=== PATIENT | female | born 1985 | race Caucasian/White ===

== ENCOUNTER 2023-07-23 15:41 | Emergency (ER) | payer OTHER, SELFPAY ==
[2023-07-23 15:47] VITALS: BP 132/82; PULSE 73; RESP 14; TEMP 36.8; O2SAT 100; BMI 23.3
--- NOTE | 2023-07-23 15:56 | US_ITS ---
The [address] [address] Patient Name: ISABEL SOSA MRN: [id number] date: 1985 Sex: F Assigned Patient Location: ER Current Patient Location: ED.MAIN Accession/Order Number: [id number] Exam Date: 07/23/2023 16:05 Report Date: 07/23/2023 16:52 At the request of: PORTIA ROUSE Procedure: US venous doppler UE RT US venous doppler UE RT, 07/23/2023 4:05 PM EDT, [place]001 INDICATION: DVT painful right forearm lump. COMPARISON: None Technique: Duplex Doppler sonographic images of the right upper extremity venous system were obtained. FINDINGS: Normal flow, phasicity, augmentation and compression was observed in the subclavian, axillary, brachial, basilic, cephalic, and antecubital veins. No definite mass or abnormal fluid collection is seen region of clinical concern in the forearm. US/US venous doppler UE RT IMPRESSION: No evidence of DVT in the images obtained. Electronically authenticated by: YASMANI STACK Date: 07/23/2023 16:52
--- NOTE | 2023-07-23 16:11 | ED.GENADUL1 ---
HPI - General Adult General Chief complaint: Extremity Injury, Upper Stated complaint: Upper Extremity Pain Time Seen by Provider: 07/23/23 15:56 Source: patient Mode of arrival: walk-in History of Present Illness HPI narrative: patient is a 37-year-old female who presents to the emergency department for the evaluation of pain and swelling on the ulnar aspect of the right forearm. She states for the past two days she has noticed pain on the ulnar aspect of the forearm, in the last day she has noticed swelling. She is concerned she may have a blood clot. She had an extensive surgery on her radius and ulna ten years ago a [facility]. She denies any new mechanism of injury or trauma. Pain is not worse with range of motion at the right wrist, pain is worse with supination and pronation. No paresthesia noted. She is not concerned for . Related Data Previous Rx's Medication Instructions Recorded naproxen sodium 550 mg tablet 550 mg PO BID PRN pain #10 tabs 07/23/23 Allergies Allergy/AdvReac Type Severity Reaction Status Date / Time No Known Drug Allergies Allergy Verified 07/23/23 15:51 Review of Systems ROS Constitutional Denies: fever or chills Ears, nose, mouth, and throat Denies: throat pain Respiratory Denies: shortness of breath Gastrointestinal Denies: nausea or vomiting Musculoskeletal Reports: extremity pain and extremity swelling; Denies: back pain or neck pain Integumentary/Breast Denies: rash Neurological Denies: headache Hematologic/Lymphatic Denies: easy bruising Allergic/Immunologic Denies: hives Exam Narrative Exam Narrative: Gen.: Awake, alert, in no distress Head: Normocephalic, atraumatic ENT: Moist mucous membranes Respiratory: No respiratory distress Extremities: Moves extremities equally, well-healed surgical incision of the right forearm with soft tissue swelling noted at the proximal aspect of the incision. No erythema or induration of the skin. No open wounds, red streaking or circumferential erythema noted. No specific palpable fluctuance or abscess noted. 2+ right radial pulse. Normal flexion and extension at the right wrist and right elbow. Psych: Normal mood and affect Neuro: No focal neuro deficit Skin: Warm, dry, intact Constitutional Vital Signs, click to edit/add: Last Vital Signs Temp 98.3 F 07/23/23 15:47 Pulse 73 07/23/23 15:47 Resp 14 07/23/23 15:47 BP 132/82 07/23/23 15:47 Pulse Ox 100 07/23/23 15:47 O2 Del Method Room Air 07/23/23 16:22 Course Vital Signs Vital signs: Vital Signs Temperature 98.3 F 07/23/23 15:47 Pulse Rate 73 07/23/23 15:47 Respiratory Rate 14 07/23/23 15:47 Blood Pressure 132/82 07/23/23 15:47 Pulse Oximetry 100 07/23/23 15:47 Oxygen Delivery Method Room Air 07/23/23 15:47 Temperature 98.3 F 07/23/23 15:47 Pulse Rate 73 07/23/23 15:47 Respiratory Rate 14 07/23/23 15:47 Blood Pressure 132/82 07/23/23 15:47 Pulse Oximetry 100 07/23/23 15:47 Oxygen Delivery Method Room Air 07/23/23 16:22 Medical Decision Making MDM Narrative Medical decision making narrative: x-rays of the right forearm and ultrasound of the right forearm with no evidence of acute process, abscess or deep vein thrombosis. Patient will be treated with NSAIDs, she is strongly encouraged to follow-up with orthopedics [facility] where she had her initial surgery. She is placed in a metal forearm splint with Miguel wrap, she is neurovascularly intact at discharge. Rest, ice, elevate. return to the Emergency Room if symptoms change or worsen Medical Records Medical records reviewed: Yes I reviewed the patient's medical records Imaging Data Venous US: Attestation: I have reviewed the pertinent imaging results. Radiologist's impression: Procedure: US venous doppler UE RT US venous doppler UE RT, 07/23/2023 4:05 PM EDT, [place]001 INDICATION: DVT painful right forearm lump. COMPARISON: None Technique: Duplex Doppler sonographic images of the right upper extremity venous system were obtained. FINDINGS: Normal flow, phasicity, augmentation and compression was observed in the subclavian, axillary, brachial, basilic, cephalic, and antecubital veins. No definite mass or abnormal fluid collection is seen region of clinical concern in the forearm. IMPRESSION: No evidence of DVT in the images obtained. Electronically authenticated by: YASMANI STACK Date: 07/23/2023 16:52 XR forearm: Attestation: I have reviewed the pertinent imaging results. Radiologist's impression: Procedure: XR forearm RT 2V EXAM: XR forearm RT 2V HISTORY: right arm pain COMPARISON: None. TECHNIQUE: 2 views of the right forearm FINDINGS: Status post ORIF of the radial and ulnar shaft. No hardware complication. The alignment is normal. No acute fracture or dislocation. The soft tissue is unremarkable. IMPRESSION: No acute process. Electronically authenticated by: SHUBHAM MARTINEZ Date: 07/23/2023 16:59 Discharge Plan Discharge Chief Complaint: Extremity Injury, Upper Clinical Impression: Pain in right forearm Patient Disposition: Home, Self-Care Time of Disposition Decision: 17:14 Condition: Good Prescriptions / Home Meds: New naproxen sodium 550 mg tablet 550 mg PO BID PRN (Reason: pain) Qty: 10 0RF Instructions: Arm Pain (ED) Additional Instructions: Call [facility] for orthopedic follow up Stand Alone Forms: Portal Instructions Referrals: Physician,Non-Staff, MD [Primary Care Provider] - 1 week
--- NOTE | 2023-07-23 16:34 | XR_ITS ---
The [address] [address] Patient Name: ISABEL SOSA MRN: [id number] date: 1985 Sex: F Assigned Patient Location: ER Current Patient Location: ER Accession/Order Number: [id number] Exam Date: 07/23/2023 16:28 Report Date: 07/23/2023 16:59 At the request of: PORTIA ROUSE Procedure: XR forearm RT 2V EXAM: XR forearm RT 2V HISTORY: right arm pain COMPARISON: None. TECHNIQUE: 2 views of the right forearm FINDINGS: Status post ORIF of the radial and ulnar shaft. No hardware complication. The alignment is normal. No acute fracture or dislocation. The soft tissue is unremarkable. XR/XR forearm RT 2V IMPRESSION: No acute process. Electronically authenticated by: SHUBHAM MARTINEZ Date: 07/23/2023 16:59
[2023-07-23] MEDS: KETOROLAC TROMETHAMINE 10 MG TABLET PO (16:46)
== END 2023-07-23 17:27 | disposition home or self-care (01) ==
PROVIDERS: Emergency Provider Emergency Medicine
DX: M79.631 Pain in right forearm (principal); M79.89 Other specified soft tissue disorders
CPT/HCPCS: 73090; 93971; 99284

== ENCOUNTER 2024-12-02 19:09 | Emergency (ER) | payer OTHER, SELFPAY ==
[2024-12-02] VITALS (13 sets, daily range): BP systolic 146–160; BP diastolic 96–115; PULSE 66–96; TEMP 36.4; O2SAT 96–100; BMI 23.2
--- NOTE | 2024-12-02 19:34 | ECG_ITS ---
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
--- NOTE | 2024-12-02 19:35 | XR_ITS ---
The [address] [address] Patient Name: ISABEL SOSA MRN: [id number] date: 1985 Sex: F Assigned Patient Location: ER Current Patient Location: ER Accession/Order Number: [id number] Exam Date: 12/02/2024 19:45 Report Date: 12/02/2024 20:29 At the request of: PAN HERNANDEZ Procedure: XR chest 1V EXAM: XR chest 1V HISTORY: pain COMPARISON: 09/21/2021 TECHNIQUE: AP upright portable. FINDINGS: Cardiomediastinal silhouette and pulmonary vascularity are within normal limits. The lungs and the costophrenic angles are clear. XR/XR chest 1V IMPRESSION: Unremarkable chest. Electronically authenticated by: RADHA NANCE Date: 12/02/2024 20:29
--- NOTE | 2024-12-02 19:37 | ED.GENADUL1 ---
HPI HPI - General Adult General Chief complaint: Upper Respiratory Infection Stated complaint: Chest pain Shortness of Breath Time Seen by Provider: 12/02/24 19:30 Source: patient Mode of arrival: walk-in History of Present Illness HPI narrative: 39-year-old female presents for pain to the left upper back near her shoulder blade that she noticed when she woke up this morning at 10 AM, about 9 hours ago. She has had a slight cough. A few weeks ago she had a stomach bug. She has not had productive cough or hemoptysis or fever and there is been no injury or unusual activity. Hurts worse in certain positions. Related Data Home Medications ?Medication ?Instructions ?Recorded ?Confirmed paroxetine HCl 10 mg tablet (Paxil) 10 mg PO DAILY 12/02/24 12/02/24 ropinirole 0.5 mg tablet mg 12/02/24 trazodone 50 mg tablet mg 12/02/24 Previous Rx's ?Medication ?Instructions ?Recorded ibuprofen 800 mg tablet 800 mg PO Q8H PRN pain #20 tabs 12/02/24 Allergies Allergy/AdvReac Type Severity Reaction Status Date / Time No Known Drug Allergies Allergy Verified 12/02/24 19:23 Opioid HPI Opioid Management Most Recent Opioid Data: No Data to Display Review of Systems ROS Narrative A ten point review of systems is negative except as noted above. PFSH PFSH Social History Little interest or pleasure in doing things: not at all Feeling down, depressed, or hopeless: not at all Exam Narrative Exam Narrative: Nurses note and vital signs reviewed and patient is not hypoxic. General: The patient appears mildly uncomfortable. She is in no acute respiratory distress Skin: Warm, dry, no pallor noted. There is no rash noted. Head: Normocephalic, atraumatic Eye: Normal conjunctiva, no drainage Ears, Nose, Mouth, and Throat: oral mucosa is moist. Nares patent. Cardiovascular: Regular Rate and Rhythm, not tachycardic Respiratory: Patient is in no distress, no accessory muscle use, lungs are clear to auscultation, no wheezing, rales or rhonchi. There is no bruise or rash on her back. Back: non-tender GI: Soft and nontender Musculoskeletal: The patient has no evidence of calf tenderness, no pitting edema, symmetrical pulses noted bilaterally Neurological: A&O normal speech Psychiatric: Cooperative Constitutional Vital Signs, click to edit/add: Last Vital Signs Temp 97.5 F L 12/02/24 19:14 Pulse 78 12/02/24 19:14 Resp 28 H 12/02/24 19:14 BP 160/104 H 12/02/24 19:14 Pulse Ox 99 12/02/24 20:05 O2 Del Method Room Air 12/02/24 20:05 Course Vital Signs Vital signs: Vital Signs Temperature 97.5 F L 12/02/24 19:14 Pulse Rate 78 12/02/24 19:14 Respiratory Rate 28 H 12/02/24 19:14 Blood Pressure 160/104 H 12/02/24 19:14 Pulse Oximetry 100 12/02/24 19:14 Oxygen Delivery Method Room Air 12/02/24 19:14 Temperature 97.5 F L 12/02/24 19:14 Pulse Rate 78 12/02/24 19:14 Respiratory Rate 28 H 12/02/24 19:14 Blood Pressure 160/104 H 12/02/24 19:14 Pulse Oximetry 99 12/02/24 20:05 Oxygen Delivery Method Room Air 12/02/24 20:05 Medical Decision Making MDM Narrative Medical decision making narrative: Her workup is negative including chest x-ray and D-dimer. She was given IM Toradol and prescribed ibuprofen. Treatment diagnosis and follow-up were discussed with the patient. Differential Diagnosis Differential Diagnosis: Pneumonia, pneumothorax, PE, muscle pain Lab Data Lab results reviewed: Yes I reviewed the patient's lab results Labs: Lab Results 12/02/24 12/02/24 Range/Units 19:43 19:48 WBC 5.8 (4.0-11.0) 10^3/uL RBC 4.18 L (4.20-5.40) 10^6/uL Hgb 13.1 (12.0-16.0) g/dL Hct 38.7 (36.0-48.0) % MCV 92.6 (81.0-99.0) fL MCH 31.3 (26.7-34.0) pg MCHC 33.9 (29.9-35.2) g/dL RDW 11.9 (11.0-15.0) % Plt Count 209 (150-450) 10^3/uL MPV 11.5 (9.5-13.5) fL Neut % (Auto) 54.9 (43.0-75.0) % Lymph % (Auto) 30.9 (20.5-60.0) % [place] % (Auto) 9.1 (1.7-12.0) % Eos % (Auto) 3.4 (0.9-7.0) % Baso % (Auto) 0.7 (0.2-2.0) % Neut # (Auto) 3.2 (1.4-6.5) 10^3/uL Lymph # (Auto) 1.8 (1.2-3.8) 10^3/uL [place] # (Auto) 0.5 (0.3-0.8) 10^3/uL Eos # (Auto) 0.2 (0.0-0.7) 10^3/uL Baso # (Auto) 0.0 (0.0-0.1) 10^3/uL Abs Immat Gran (auto) 0.06 H (0.00-0.03) 10^3/uL Imm/Tot Granulo (auto) 1.0 H (0.0-0.5) % D-Dimer <0.19 (<=0.59) mg/L FEU Sodium 144 (136-145) mmol/L Potassium 3.5 (3.5-5.1) mmol/L Chloride 107 (98-107) mmol/L Carbon Dioxide 23.8 (21.0-32.0) mmol/L Anion Gap 16.7 BUN 8.0 (7.0-18.0) mg/dL Creatinine 0.81 (0.55-1.02) mg/dL Est GFR ( Amer) >60 (>=60 mL/min/1.73m^2) Est GFR (Non-Af Amer) >60 (>=60 mL/min/1.73m^2) BUN/Creatinine Ratio 9.9 Glucose 90 (74-106) mg/dL Calcium 8.6 (8.5-10.1) mg/dL Influenza Type A Ag Negative Influenza Type B Ag Negative SARS-CoV-2 Ag (CV2AG) Negative (NEGATIVE) Imaging Data Chest x-ray: Radiologist's impression: ITS Impressions Chest X-Ray 12/02/24 19:35 IMPRESSION: Unremarkable chest. Electronically authenticated by: RADHA NANCE Date: 12/02/2024 20:29 ECG Data Attestation: I personally reviewed and interpreted this ECG as follows: (EKG on my interpretation shows sinus rhythm with a rate of 65 and no acute change) Discharge Plan Discharge Chief Complaint: Upper Respiratory Infection Clinical Impression: Upper respiratory infection, Back pain Patient Disposition: Home, Self-Care Time of Disposition Decision: 20:38 Condition: Good Mode of Transportation: Private Vehicle Prescriptions / Home Meds: New ibuprofen 800 mg tablet 800 mg PO Q8H PRN (Reason: pain) Qty: 20 0RF No Action paroxetine HCl [Paxil] 10 mg tablet 10 mg PO DAILY trazodone 50 mg tablet ropinirole 0.5 mg tablet Print Language: Polish Instructions: Upper Respiratory Infection (ED) Referrals: JESSICA [facility] [Primary Care Provider] - 1 week
[2024-12-02 20:03] LABS: Basophils Percent Auto 0.7 % (0.2-2.0); Eosinophils Absolute Auto 0.2 10^3/uL (0.0-0.7); Eosinophils Percent Auto 3.4 % (0.9-7.0); Hematocrit 38.7 % (36.0-48.0); Hemoglobin 13.1 g/dL (12.0-16.0); Immature Granulocytes Abs Auto 0.06 10^3/uL (0.00-0.03); Lymphocytes Absolute Auto 1.8 10^3/uL (1.2-3.8); Lymphocytes Percent Auto 30.9 % (20.5-60.0); Mean Corpuscular HGB Conc 33.9 g/dL (29.9-35.2); Mean Corpuscular Hemoglobin 31.3 pg (26.7-34.0); Mean Corpuscular Volume 92.6 fL (81.0-99.0); Mean Platelet Volume 11.5 fL (9.5-13.5); Monocytes Absolute Auto 0.5 10^3/uL (0.3-0.8); Monocytes Percent Auto 9.1 % (1.7-12.0); Neutrophils Absolute Auto 3.2 10^3/uL (1.4-6.5); Neutrophils Percent Auto 54.9 % (43.0-75.0); Platelet Count 209 10^3/uL (150-450); Red Blood Count 4.18 10^6/uL (4.20-5.40); Red Cell Distribution Width 11.9 % (11.0-15.0); White Blood Count 5.8 10^3/uL (4.0-11.0)
[2024-12-02 20:13] LABS: Influenza Virus A Antigen Negative; Influenza Virus B Antigen Negative; Internal Control Within Normal Limits; SARS-CoV-2 Ag NEGATIVE (NEGATIVE)
[2024-12-02 20:14] LABS: Anion Gap 16.7; BUN Creatinine Ratio 9.9; Calcium 8.6 mg/dL (8.5-10.1); Carbon Dioxide 23.8 mmol/L (21.0-32.0); Chloride 107 mmol/L (98-107); Estimated GFR (African America >60 (>=60 mL/min/1.73m^2); Estimated GFR (Non-African Ame >60 (>=60 mL/min/1.73m^2); Glucose 90 mg/dL (74-106); Potassium 3.5 mmol/L (3.5-5.1); Sodium 144 mmol/L (136-145)
[2024-12-02 20:27] LABS: D Dimer <0.19 mg/L FEU (<=0.59)
[2024-12-02] MEDS: KETOROLAC TROMETHAMINE 60 MG/2 ML VIAL IM (21:00)
== END 2024-12-02 21:08 | disposition home or self-care (01) ==
PROVIDERS: Emergency Provider Emergency Medicine; PCP Nurse Practitioner Family
DX: J06.9 Acute upper respiratory infection, unspecified (principal); M54.89 Other dorsalgia
CPT/HCPCS: 36415; 71045; 80048; 85025; 85378; 87804; 87811; 93005; 96372; 99285; J1885